=== PATIENT | male | born 1985 | race Caucasian/White ===

== ENCOUNTER 2022-07-24 21:56 | Emergency (ER) | payer MEDICAID ==
[~2022-07-24] VITALS: Ht 175.3 cm; Wt 80.7 kg
[2022-07-24 22:31] VITALS: BP 119/80
[2022-07-24] MEDS ORDERED: CIPR-262 PO (23:10)
[2022-07-24] MEDS ORDERED: CIPROFLOXACIN HCL 500 MG TABLET ONE (23:13)
[2022-07-24] MEDS ORDERED: TDAP [DIPH/PERTUSSIS/TET] 0.5 ML VIAL IM ONE ×2 (23:13→23:30)
--- NOTE | 2022-07-24 23:24 | NUR ---
Patient discharged to home in stable condition. Written and verbal after care instructions given. Patient verbalizes understanding of instruction.
[2022-07-24] MEDS ORDERED: CIPROFLOXACIN HCL 250 MG TABLET PO ONE (23:30)
== END 2022-07-24 23:24 | disposition home or self-care (01) ==
LOC: ER 22:01
DX: S91.331A Puncture wound without foreign body, right foot, initial encounter (principal); W45.0XXA Nail entering through skin, initial encounter; Y93.89 Activity, other specified; Y92.89 Other specified places as the place of occurrence of the external cause; Y99.8 Other external cause status
CPT/HCPCS: 90715